=== PATIENT | male | born 1985 | race African-American/Black ===

== ENCOUNTER 2020-04-02 17:27 | Emergency (ER) | payer MEDICAID, OTHER ==
[~2020-04-02] VITALS: Ht 170.2 cm; Wt 65.8 kg
[2020-04-02 17:33] VITALS: BP 120/74
[2020-04-02] MEDS ORDERED: predniSONE 20 MG TAB PO ONE (20:00)
== END 2020-04-02 20:59 | disposition home or self-care (01) ==
LOC: ER 17:27
DX: J30.2 Other seasonal allergic rhinitis (principal)
CPT/HCPCS: 99283; J7512

== ENCOUNTER 2022-10-11 18:18 | Emergency (ER) | payer BC, MEDICAID ==
[~2022-10-11] VITALS: Ht 170.2 cm; Wt 69.8 kg
[2022-10-11 18:47] VITALS: BP 113/81
[2022-10-11] MEDS ORDERED: IBUP800T27 PO (19:38)
[2022-10-11] MEDS ORDERED: IBUPROFEN 800 MG TAB PO ONE (19:45)
== END 2022-10-11 19:45 | disposition home or self-care (01) ==
LOC: ER 18:22
DX: R51.9 Headache, unspecified (principal); F17.210 Nicotine dependence, cigarettes, uncomplicated
CPT/HCPCS: 82962

== ENCOUNTER 2023-02-19 21:27 | Emergency (ER) | payer BC, MEDICAID ==
[~2023-02-19] VITALS: Ht 170.2 cm; Wt 68.0 kg
[~2023-02-19 21:27] MED LIST: IBUP800T27 PO
[2023-02-19 22:25] LABS: Basophils # (auto) 0.2 10 ^3/uL (0-0.2); Basophils % (auto) 3.9 % (0.0-2.0); Eosinophils # (auto) 0.2 10 ^3/uL (0-0.8); Eosinophils % (auto) 3.4 % (0.0-7.0); Hematocrit 39.2 % (41.0-53.0); Hemoglobin 13.3 g/dL (13.5-17.5); Lymphocytes # (auto) 1.9 10 ^3/uL (0.4-5.4); Lymphocytes % (auto) 35.8 % (10.0-50.0); Mean Corpuscular Hemoglobin 33.7 pg (28.0-32.0); Mean Corpuscular Volume 99.1 fL (80.0-100.0); Monocytes # (auto) 0.2 10 ^3/uL (0-1.3); Monocytes % (auto) 3.7 % (0.0-12.0); Neutrophils # (auto) 2.8 10 ^3/uL (1.6-8.6); Neutrophils % (auto) 53.2 % (37.0-80.0); Nucleated Red Blood Cells % 0.1 %; Red Blood Cells 3.96 10^6/uL (4.5-5.90); Red Cell Distribution Width 13.7 % (11.8-14.3); White Blood Cell 5.3 10^3/uL (4.4-10.8)
[2023-02-19 22:41] LABS: Albumin 3.7 g/dL (3.4-5.0); Calcium 8.7 mg/dL (8.5-10.1); Potassium 4.1 mmol/L (3.5-5.1)
[2023-02-19 22:45] LABS: BUN/Creatinine Ratio 10.3 (10.0-20.0); Bilirubin, Total 0.2 mg/dL (0.2-1.0); Total Protein 6.8 g/dL (6.4-8.2)
[2023-02-20 07:31] VITALS: BP 141/87
== END 2023-02-20 07:31 | disposition home or self-care (01) ==
LOC: ER 21:27
DX: R07.89 Other chest pain (principal); F41.9 Anxiety disorder, unspecified; F32.9 Major depressive disorder, single episode, unspecified; F17.210 Nicotine dependence, cigarettes, uncomplicated
CPT/HCPCS: 36415; 71045; 71275; 80053; 84484; 85025; 93005

== ENCOUNTER 2023-06-01 00:01 | Emergency (ER) | payer BC, MEDICAID ==
[~2023-06-01] VITALS: Ht 157.5 cm; Wt 70.4 kg
[~2023-06-01 00:01] MED LIST changes: +IBUP-1456 PO; -IBUP800T27 PO
[2023-06-01] MEDS ORDERED: ACETAMINOPHEN 325 MG TAB PO ONE (02:30)
[2023-06-01 03:58] VITALS: BP 139/90; PULSE 65; RESP 16; TEMP 98.5; O2SAT 97
== END 2023-06-01 04:12 | disposition home or self-care (01) ==
LOC: ER 00:01
DX: R51.9 Headache, unspecified (principal); F17.210 Nicotine dependence, cigarettes, uncomplicated
CPT/HCPCS: 70450

== ENCOUNTER 2024-10-16 20:17 | Emergency (ER) | payer BC, MEDICAID ==
[~2024-10-16] VITALS: Ht 170.2 cm; Wt 69.2 kg
--- NOTE | 2024-10-16 20:43 | ED.PDOC ---
SOB-HPI HPI Comments 39-year-old male who came to ER for cough. Patient denies any medical problems. States for the past 2 days he has been having dry, hacking, nonproductive cough, associated with intermittent episodes of fever and chills, and shortness of breath. Denies any acute chest pains. Patient declined any imaging studies today. Chief Complaint: Cough Time Seen by MD: 20:43 Primary Care Provider: NONE Reviewed notes: Nurses Notes Information Source: Patient Mode of Arrival: Ambulatory Severity: Moderate Timing: Days Duration: Intermittent Context: At Rest, With Light Exertion PE Risk Factors: None History of: None Prehospital treatment: None Modifying Factors: Nothing Associated Signs and Symptoms: Fever, Cough, Nasal Congestion Radiation: No Radiation If cough with SOB: Non-Productive Past Medical History PAST MEDICAL HISTORY: Denies Surgical History: Denies all surgeries Family History Family History: Reviewed,noncontributory to illness Social History Smoker: Cigarettes Alcohol: Occasionally Drugs: Denies Drug Use Lives In: Home Constitutional: reports: chills, fever; denies: diaphoresis, fatigue, malaise, sweats, weakness, others EENTM: denies: blurred vision, double vision, ear bleeding, ear discharge, ear drainage, ear pain, ear ringing, eye pain, eye redness, hearing loss, mouth pain, mouth swelling, nasal discharge, nose bleeding, nose congestion, nose pain, photophobia, tearing, throat pain, throat swelling, voice changes, others Respiratory: reports: cough, SOB at rest; denies: hemoptysis, orthopnea, shortness of breath, SOB with excertion, stridor, wheezing, others Cardiovascular: denies: chest pain, dizzy spells, diaphoresis, Dyspnea on exertion, edema, irregular heart beat, left arm pain, lightheadedness, palpitations, PND, syncope, others Gastrointestinal: denies: abdomen distended, abdominal pain, blood streaked bowels, constipated, diarrhea, dysphagia, difficulty swallowing, hematemesis, melena, nausea, poor appetite, poor fluid intake, rectal bleeding, rectal pain, vomiting, others Genitourinary: denies: burning, dysuria, flank pain, frequency, hematuria, incontinence, penile discharge, penile sore, pain, testicle pain, testicle swelling, urgency, others Neurological: denies: dizziness, fainting, headache, left sided numbness, left sided weakness, numbness, paresthesia, pre-existing deficit, right sided numbness, right sided weakness, seizure, speech problems, tingling, tremors, weakness, others Musculoskeletal: denies: back pain, gout, joint pain, joint swelling, muscle pain, muscle stiffness, neck pain, others Integumetry: denies: bruises, change in color, change in hair/nails, dryness, laceration, lesions, lumps, rash, wounds, others Allergic/Immunocompromised: denies: Difficulty Healing, Frequent Infections, Hives, Itching, others Hematologic/Lymphatic: denies: anemia, blood clots, easy bleeding, easy bruising, swollen glands, others Endocrine: denies: excessive hunger, excessive sweating, excessive thirst, excessive urination, flushing, intolerance to cold, intolerance to heat, unexplained weight gain, unexplained weight loss, others Psychiatric: denies: anxiety, bipolar disorder, depression, hopeless, panic disorder, schizophrenia, sleepless, suicidal, others Physical Exam General Appearance: Mild Distress (Patient presents as a moderately ill 39-year-old male.), Normal HEENT: Normal ENT Inspection, Pharynx Normal, TMs Normal Neck: Full Range of Motion, Non-Tender, Normal, Normal Inspection Respiratory: Chest Non-Tender, Lungs Clear, No Accessory Muscle Use, No Respiratory Distress, Normal Breath Sounds, Other (Unremarkable auscultation bilateral lung ghotra.) Cardiovascular: No Edema, No JVD, No Murmur, No Gallop, Normal Peripheral Pulses, Regular Rate/Rhythm Breast Exam: Deferred Gastrointestinal: No Organomegaly, Non Tender, No Pulsatile Mass, Normal Bowel Sounds, Soft Genitalia: Deferred Pelvic: Deferred Rectal: Deferred Extremities: No calf tenderness, Normal capillary refill, Normal inspection, Normal range of motion, Non-tender, No pedal edema Musculoskeletal : Apperance: Normal Neurologic: Alert, No Motor Deficits, Normal Affect, Normal Mood, No Sensory Deficits Cerebellar Function: Normal Reflexes: Normal Skin: Dry, Normal Color, Warm Lymphatic: No Adenopathy Was a procedure done? Was a procedure done?: No Differential Dx Differential Diagnosis: URI (Viral respiratory infection, influenza a/B, COVID- 19) X-Ray, Labs, Meds, VS Vital Signs Date Time Temp Pulse Resp B/P (MAP) Pulse Ox O2 Delivery O2 Flow Rate FiO2 10/16/24 20:37 99.0 93 18 133/86 (102) 99 10/16/24 20:37 18 99 Room Air* 0 21 Lab Test 10/16/24 20:50 Range/Units Influenza Type A Antigen Positive Negative Influenza Type B Antigen Negative Negative SARS-CoV-2 Antigen (Rapid) Negative NEGATIVE X-Ray, Labs, Meds, VS Comment All studies performed the ED today were evaluated by me personally. Patient is suffering from an influenza a concern. Advised patient utilize Tamiflu and additional medication as needed. Time of 1ST Reevaluation: 21:55 Reevaluation 1ST: Unchanged Consultation: PCP Patient Education/Counseling: Diagnosis, Treatment Family Education/Counseling: Diagnosis, Treatment, No Family Present Departure 1 Departure Time of Disposition: 21:56 Impression: Primary Impression: Influenza A Disposition: 01 HOME / SELF CARE / HOMELESS Condition: Stable Additional Instructions: Advised patient utilize Tamiflu as directed until completion as well as additional medication as needed. Patient should practice good hydration and healthy nutrition throughout illness event. e-Prescriptions Benzonatate (Benzonatate) 100 Mg Cap 1 CAP PO Q6HP PRN, #30 CAP Prov: MITALI MCHUGH PAC 10/16/24 Ibuprofen Micronized (Ibuprofen) 800 Mg Tab 800 MG PO Q8HP PRN, #20 TAB Prov: MITALI MCHUGH PAC 10/16/24 Acetaminophen (Acetaminophen) 500 Mg Tab 500 MG PO Q4HP PRN, #30 TAB Prov: MITALI MCHUGH PAC 10/16/24 Oseltamivir Phosphate (Tamiflu) 75 Mg Cap 75 MG PO BID for 5 Days, #10 CAP Prov: MITALI MCHUGH PAC 10/16/24 Discharged With: Self Critical Care Note Critical Care Time?: No Stability Stability form required: No Heart Score Heart Score: Heart Score Response (Comments) Value History N/A 0 EKG N/A 0 Age N/A 0 Risk Factors N/A 0 Troponin N/A 0 Total 0 I personally scribed for MITALI MCHUGH PAC ([email or web address]) on 10/16/24 at 20:43. Electronically submitted by Magdi Alexander ([email or web address]). MITALI MCHUGH PAC Oct 16, 2024 20:43
[2024-10-16 21:43] LABS: COVID19 ANTIGEN SOFIA FIA NEGATIVE (NEGATIVE)
[2024-10-16 21:46] LABS: Rapid Influenza A Positive (Negative); Rapid Influenza B Negative (Negative)
[2024-10-16] MEDS ORDERED: BENZ100C97 PO (22:00)
[2024-10-16] MEDS ORDERED: ACET500T58 PO (22:00)
[2024-10-16] MEDS ORDERED: TAMIFLU PO (22:00)
[2024-10-16] MEDS ORDERED: IBUP-1455 PO (22:00)
[2024-10-16 22:14] VITALS: BP 133/86; PULSE 93; RESP 18; TEMP 99; O2SAT 99
== END 2024-10-16 22:16 | disposition home or self-care (01) ==
LOC: ER 20:17
DX: J10.1 Influenza due to other identified influenza virus with other respiratory manifestations (principal); F17.210 Nicotine dependence, cigarettes, uncomplicated; Z20.822 Contact with and (suspected) exposure to COVID-19
CPT/HCPCS: 36415; 87426; 87804

== ENCOUNTER 2025-02-13 02:11 | Emergency (ER) | payer BC, MEDICAID ==
[~2025-02-13] VITALS: Ht 170.2 cm; Wt 71.3 kg
[~2025-02-13 02:11] MED LIST changes: +ACET500T58 PO; +BENZ100C97 PO; +IBUP-1455 PO; +TAMIFLU PO
[2025-02-13] MEDS ORDERED: CYCL-837 PO (02:34)
[2025-02-13] MEDS ORDERED: ACET500T58 PO (02:34)
--- NOTE | 2025-02-13 02:39 | ED.PDOC ---
Back pain HPI HPI Comments 40 year old male presents to ER with complaints of back pain x 4 hours. Patient states he started experiencing 8/10 lower back pain 4 hours prior to arrival to ER s/p lifting "boxes" at work. Patient also notes that while lifting boxes a box fell from above him and hit him on the top of his head and has since been experiencing 8/10 frontal headache, denying falling/LOC. Notes he did take ibuprofen prior to arrival to ER without relief. Patient presents to ER ambulatory on arrival, alert and oriented x4, with steady gait, in no distress. Denies n/v, numbness/tingling, dizziness or any further symptoms/complaints Chief Complaint: Back Pain Time Seen by MD: 02:16 Primary Care Provider: NONE Reviewed Notes: Nurses Notes, Medications, Allergies Allergies: Coded Allergies: NO KNOWN ALLERGIES (Unverified , 04/02/20) Home Meds Active Scripts Cyclobenzaprine Hcl (Cyclobenzaprine Hcl) 5 Mg Tab, 1 TAB PO QHSP, #14 TAB 0 Refills Prov:ALISON HOYOS 02/13/25 Acetaminophen (Acetaminophen) 500 Mg Tab, 500 MG PO Q4HPRN, #30 TAB 0 Refills Prov:ALISON HOYOS 02/13/25 Benzonatate (Benzonatate) 100 Mg Cap, 1 CAP PO Q6HP PRN, #30 CAP Prov:MITALI MCHUGH [facility] 10/16/24 Ibuprofen Micronized (Ibuprofen) 800 Mg Tab, 800 MG PO Q8HP PRN, #20 TAB Prov:MITALI MCHUGH [facility] 10/16/24 Acetaminophen (Acetaminophen) 500 Mg Tab, 500 MG PO Q4HP PRN, #30 TAB Prov:MITALI MCHUGH [facility] 10/16/24 Oseltamivir Phosphate (Tamiflu) 75 Mg Cap, 75 MG PO BID for 5 Days, #10 CAP Prov:MITALI MCHUGH [facility] 10/16/24 Ibuprofen (Ibuprofen) 800 Mg Tab, 1 TAB PO Q6HPRN PRN, #30 TAB 0 Refills Prov:MARSHA GUERRIER 10/11/22 Information Source: Patient Past Medical History PAST MEDICAL HISTORY: Denies Surgical History: Denies all surgeries Family History Family History: Unknown Social History Smoker: Cigarettes, Less Than 1 Pack/Day Alcohol: Occasionally Drugs: Denies Drug Use Lives In: Home Constitutional: denies: chills, diaphoresis, fatigue, fever, malaise, sweats, weakness, others EENTM: denies: blurred vision, double vision, ear bleeding, ear discharge, ear drainage, ear pain, ear ringing, eye pain, eye redness, hearing loss, mouth pain, mouth swelling, nasal discharge, nose bleeding, nose congestion, nose pain, photophobia, tearing, throat pain, throat swelling, voice changes, others Respiratory: denies: cough, hemoptysis, orthopnea, SOB at rest, shortness of breath, SOB with excertion, stridor, wheezing, others Cardiovascular: denies: chest pain, dizzy spells, diaphoresis, Dyspnea on exertion, edema, irregular heart beat, left arm pain, lightheadedness, palpitations, PND, syncope, others Gastrointestinal: denies: abdomen distended, abdominal pain, blood streaked bowels, constipated, diarrhea, dysphagia, difficulty swallowing, hematemesis, melena, nausea, poor appetite, poor fluid intake, rectal bleeding, rectal pain, vomiting, others Genitourinary: denies: burning, dysuria, flank pain, frequency, hematuria, incontinence, penile discharge, penile sore, pain, testicle pain, testicle swelling, urgency, others Neurological: reports: others (As stated in HPI) Musculoskeletal: reports: others (As stated in HPI) Integumetry: denies: bruises, change in color, change in hair/nails, dryness, laceration, lesions, lumps, rash, wounds, others Allergic/Immunocompromised: denies: Difficulty Healing, Frequent Infections, Hives, Itching, others Hematologic/Lymphatic: denies: anemia, blood clots, easy bleeding, easy bruising, swollen glands, others Endocrine: denies: excessive hunger, excessive sweating, excessive thirst, excessive urination, flushing, intolerance to cold, intolerance to heat, unexplained weight gain, unexplained weight loss, others Psychiatric: denies: anxiety, bipolar disorder, depression, hopeless, panic disorder, schizophrenia, sleepless, suicidal, others Physical Exam General Appearance: No Apparent Distress HEENT: Normal ENT Inspection, PERRL/EOMI, Pharynx Normal, TMs Normal Neck: Full Range of Motion, Non-Tender, Normal Respiratory: Chest Non-Tender, Lungs Clear, No Accessory Muscle Use, No Respiratory Distress, Normal Breath Sounds Cardiovascular: No Murmur, No Gallop, Regular Rate/Rhythm Breast Exam: Deferred Gastrointestinal: NOT DONE Genitalia: Deferred Pelvic: Deferred Rectal: Deferred Extremities: Normal capillary refill, Normal range of motion Musculoskeletal : Extremity Location: Back (TTP to bilateral lumbar paraspinals noted. No skin changes noted. Gait intact without abnormality) Neurologic: Alert (GCS 15), inventory checker II-XII nml as Tested, No Motor Deficits, Normal Affect, Normal Mood, No Sensory Deficits Cerebellar Function: Normal Reflexes: Normal Skin: Dry, Normal Color, Warm Peripheral Pulses: 2+ carotid (R), 2+ carotid (L), 2+ Radial (R), 2+ Radial (L), 2+ Brachial (R), 2+ Brachial (L) Lymphatic: No Adenopathy Was a procedure done? Was a procedure done?: No Sedation Sedation?: No Back Pain Differential Dx Differential Diagnosis: AAA, Fracture, Other (neurovascular injury) X-Ray, Labs, Meds, VS Vital Signs Date Time Temp Pulse Resp B/P (MAP) Pulse Ox O2 Delivery O2 Flow Rate FiO2 02/13/25 02:19 98.2 68 16 153/84 (107) 98 98.2 Advised on rest/no strenuous activity Patient had improvement in symptoms and in no distress prior to discharge Advised to f/u with PCP in 1-2 days Patient alert and oriented x4 prior to discharge. Patient verbalized understanding and agreeable with current plan of care Advised to return to ER immediately if symptoms worsen Time of 1ST Reevaluation: 02:12 Reevaluation 1ST: N/A Patient Education/Counseling: Diagnosis, Treatment, Prognosis, Need For Follow Up Family Education/Counseling: No Family Present Departure 1 Departure Time of Disposition: 02:32 Impression: Primary Impression: Lumbar strain Qualified Codes: S39.012A - Strain of muscle, fascia and tendon of lower back, initial encounter Additional Impression: Frontal headache Disposition: 01 HOME / SELF CARE / HOMELESS Condition: Stable e-Prescriptions Cyclobenzaprine Hcl (Cyclobenzaprine Hcl) 5 Mg Tab 1 TAB PO QHSP, #14 TAB 0 Refills Prov: ALISON HOYOS 02/13/25 Acetaminophen (Acetaminophen) 500 Mg Tab 500 MG PO Q4HPRN, #30 TAB 0 Refills Prov: ALISON HOYOS 02/13/25 Discharged With: Self Critical Care Note Critical Care Time?: No Stability Stability form required: No Heart Score Heart Score: Heart Score Response (Comments) Value History N/A 0 EKG N/A 0 Age N/A 0 Risk Factors N/A 0 Troponin N/A 0 Total 0 ALISON HOYOS Feb 13, 2025 02:39
[2025-02-13 02:49] VITALS: BP 153/84; PULSE 68; RESP 16; TEMP 98.2; O2SAT 98
== END 2025-02-13 03:15 | disposition home or self-care (01) ==
LOC: ER 02:11
DX: S39.012A Strain of muscle, fascia and tendon of lower back, initial encounter (principal); R51.9 Headache, unspecified; F17.210 Nicotine dependence, cigarettes, uncomplicated; W19.XXXA Unspecified fall, initial encounter; Y93.89 Activity, other specified; Y92.89 Other specified places as the place of occurrence of the external cause; Y99.0 Civilian activity done for income or pay